=== PATIENT | female | born 1995 | race Caucasian/White ===

== ENCOUNTER 2018-01-22 06:21 | Emergency (ER) | payer BC ==
[2018-01-22 06:58] VITALS: BP 83/70
--- NOTE | 2018-01-22 07:03 | EDPHY ---
H & P Stated Complaint: sore throat Time Seen by Provider: 01/22/18 06:35 - Personal History LMP (Females 10-55): Unknown Current Tetanus/Diphtheria Vaccine: Yes Current Tetanus Diphtheria and Acellular Pertussis (TDAP): Yes - Medical/Surgical History Hx Asthma: No Hx Chronic Respiratory Disease: No Hx Diabetes: No Hx Cardiac Disease: No Hx Renal Disease: No Hx Cirrhosis: No Hx Alcoholism: No Hx HIV/AIDS: No Hx Splenectomy or Spleen Trauma: No - Social History Smoking Status: Never smoked Constitutional: Initial Vital Signs Temperature (C) 36.8 C 01/22/18 06:48 Heart Rate 89 01/22/18 06:48 Respiratory Rate 18 01/22/18 06:48 Blood Pressure 83/70 L 01/22/18 06:48 O2 Sat (%) 98 01/22/18 06:48 O2 Delivery Mode Room Air Allergies/Adverse Reactions: No Known Allergies Allergy (Unverified 01/22/18 06:47) Home Medications: Medication Instructions Recorded Cephalexin [Keflex (RX)] 500 mg PO TID #30 cap 01/22/18 Loestrin 21 1.5-30 Tablet 01/22/18 Medical Decision Making ED Course/Re-evaluation: CHIEF COMPLAINT: Sore throat HISTORY OF PRESENT ILLNESS: The patient is a 22 y/o female complaining of a sore throat onset Wednesday, 5 days ago. In addition to the sore throat she also has felt more congested than normal. This morning she noticed that the throat pain was significantly worse, so she decided to present to the emergency department. Denies history of mono or stiff neck. Denies fevers, chills, nausea, vomiting, urinary or bowel complaints, numbness, paresthesias, chest pain, shortness of breath. Red and post-nasal drips REVIEW OF SYSTEMS: A comprehensive 10 system review of systems is otherwise negative aside from the elements mentioned in the history of present illness and medical decision making. PHYSICAL EXAM: HR, BP, O2 Sat, RR. Temp noted General Appearance: Alert, well hydrated, appropriate, and non-toxic appearing. Head: Atraumatic without scalp tenderness or obvious injury Eyes: Pupils equal, round, reactive to light and accommodation, EOMI, no trauma , no injection. Ears: Clear bilaterally, no perforation, normal landmarks Nose: Atraumatic, no rhinorrhea, clear. Throat: Oropharyngeal erythema with post-nasal drip. No exudates, no lesions, normal tonsils, mucus membranes moist. Neck: Supple, 2+ carotid upstroke, nontender, no lymphadenopathy. Respiratory: No retractions, no distress, no wheezes, and no accessory muscle use. Lungs are clear to auscultation bilaterally. Cardiovascular: Regular rate and rhythm, no murmurs, rubs, or gallops. Bilateral carotid, radial, dorsalis pedis, and posterior tibial pulses intact. Good capillary refill all extremities. Gastrointestinal: Abdomen is soft, nontender, non-distended, no masses, no rebound, no guarding, no peritoneal signs. Musculoskeletal: Normal active ROM of all extremities, atraumatic. Neurological: Alert, appropriate, and interactive. Non-focal neuro. Skin: No rashes, good turgor, no nodules on palpation. Past medical history: Denies Past surgical history: Denies Family history: Denies Social history: Single, student at , lives in [place] DIAGNOSTICS/PROCEDURES/CRITICAL CARE TIME: Not indicated DIFFERENTIAL DIAGNOSIS: The differential diagnosis for the patient's sore throat included but was not limited to strep throat, pneumonia, urinary tract infection, viral syndrome, meningitis, and sepsis. MEDICAL DECISION MAKING: The patient is a 22 y/o female presenting with a sore throat onset Wednesday, 5 days ago. On exam, she has oropharyngeal erythema with post-nasal drip. Strep test ordered. 0705: Reassessed patient and discussed positive strep test finding. 40mg PO Prednisone and initial 500mg Keflex administered. I have also prescribed her a course of Keflex. Return precautions provided; patient is comfortable with this plan. - Data Points Laboratory Results: 01/22/18 06:35 Group A Strep Screen POSITIVE H (NEGATIVE) Departure - Departure Disposition: Home, Routine, Self-Care Clinical Impression: Strep throat Condition: Good Instructions: Strep Throat (ED) Additional Instructions: 1. Take Keflex as prescribed. Make sure to take the entire course even if you begin to feel better. 2. Follow-up with your primary doctor within 72 hours. 3. Return to the Emergency Department for fever, chest pain, shortness of breath , increasing pain or other worsening of condition. Referrals: CONN[facility] COMBS [Other] - As per Instructions Prescriptions: Cephalexin [Keflex (RX)] 500 mg PO TID #30 cap Report Scribed for: Vladimir Aguilar Report Scribed by: Alice Savage Date of Report: 01/22/18 Time of Report: 07:08
[2018-01-22] MEDS ORDERED: predniSONE 20 MG TAB PO ONE (07:04)
[2018-01-22] MEDS ORDERED: CEPHALEXIN 500 MG CAP PO ONE (07:04)
== END 2018-01-22 07:20 | disposition home or self-care (01) ==
DX: J02.0 Streptococcal pharyngitis (principal)
CPT/HCPCS: J7512